=== PATIENT | male | born 1990 | race Caucasian/White ===

== ENCOUNTER 2017-10-24 08:45 | Emergency (ER) | payer OTHER ==
[~2017-10-24] VITALS: Ht 175.3 cm; Wt 63.5 kg
[~2017-10-24 08:45] MED LIST: HYDR-2758 PO
--- NOTE | 2017-10-24 09:22 | PHYS DOC ---
Past History Past Medical History: No Pertinent History Past Surgical History: No Surgical History Alcohol Use: None Drug Use: None Adult General Chief Complaint Chief Complaint: LOWEREXTREMITY INJURY HPI HPI 27-year-old male presenting to the emergency department today after being kicked in the right knee on the medial aspect by horse. He has pain in his knee that is sharp moderate worse with walking and without alleviating factors. He was able to ambulate after the event and denies any "buckling of the knee". He has mild left hip pain but denies any injury to the left hip. On exam of left hip has no pain with passive range of motion of the hip. He is able to ambulate and put full weight on the left hip. I do not believe an x-ray of left hip is medically warranted at this time. He denies any other injuries. He denies head injury or loss of consciousness. Review of systems is negative for chest pain shortness of breath abdominal pain or any other injuries. He denies pain in his upper extremities. All other review of systems is negative. ED course: 27-year-old male presenting to the emergency department today after being injured in the right knee by being kicked by a horse. On examination the patient has normal range of motion of left hip without any pain. On examination the patient's right knee he has an effusion with a mild abrasion. Tetanus is up- to-date. Stable knee joint on exam. Normal anterior and posterior drawer test. Patient does not tolerate medial or lateral valgus or varus stress testing due to pain. Palpable pulse distally. 2 second cap refill. Normal neurovascular status of the foot distally. X-ray obtained and unremarkable for acute fracture or dislocation. We will place the patient in an Kiran bandage, I recommend rest and bearing weight as tolerated along with elevation of the extremity and icing the extremity regularly. We will have him follow up with his doctor in 2-3 days for a repeat knee examination. If his pain continues he may warrant an MRI for further investigation tenderness primary care physician. The patient has been examined and was not found to have an emergency medical condition. The patient was then discharged home in stable condition to follow up with their primary care physician over the next 2-3 days. They were to return if their symptoms worsened or if they were concerned for any reason. They were also instructed to return to the emergency department if they were unable to get the recommended and appropriate follow-up. [id number] discharge instructions and return precautions were given. Patient's questions were answered to their satisfaction. Patient is comfortable with plan. Allergies Allergies Allergies Coded Allergies Type Severity Reaction Last Updated Verified No Known Allergies Allergy Unknown 10/12/14 No Physical Exam Physical Exam Constitutional: Well developed, well nourished, no acute distress, non-toxic appearance. [] HENT: Normocephalic, atraumatic, bilateral external ears normal, oropharynx moist, no oral exudates, nose normal. [] Eyes: PERRLA, EOMI, conjunctiva normal, no discharge. [] Neck: Normal range of motion, no tenderness, supple, no stridor. [] Cardiovascular:Heart rate regular rhythm, no murmur [] Lungs & Thorax: Bilateral breath sounds clear to auscultation [] Abdomen: Bowel sounds normal, soft, no tenderness, no masses, no pulsatile masses. [] Skin: Warm, dry, no erythema, no rash. [] Back: No tenderness, no CVA tenderness. [] Extremities: See above. Otherwise normal examination. Nontender. Normal neurovascular status. Neurologic: Alert and oriented X 3, normal motor function, normal sensory function, no focal deficits noted. [] Psychologic: Affect normal, judgement normal, mood normal. [] Current Patient Data Vital Signs Vital Signs Date Time Temp Pulse Resp B/P (MAP) Pulse Ox O2 Delivery O2 Flow Rate FiO2 10/24/17 09:11 98.9 76 22 99 Room Air EKG EKG [] Radiology/Procedures Radiology/Procedures [] Course & Med Decision Making Course & Med Decision Making Pertinent Labs and Imaging studies reviewed. (See chart for details) [] Dragon Disclaimer Dragon Disclaimer This electronic medical record was generated, in whole or in part, using a voice recognition dictation system. Departure Departure: Impression: Primary Impression: Right knee pain Additional Impression: Right knee injury Disposition: 01 HOME, SELF-CARE Condition: STABLE Referrals: LAKSHMI RICKETTS (PCP) Patient Instructions: Knee Pain Additional Instructions: Thank you for allowing us to participate in your care today. Return to the emergency department you have any new or worsening symptoms, or if you are concerned for any reason. Return to emergency department if you have any new or concerning symptoms including but not limited to fever, chills, nausea, vomiting, intractable pain, any new rashes, chest pain, shortness of air , uncontrolled bleeding, difficulty breathing, and/or vision loss. Follow up with your primary care physician within 3 days. Call your Primary Doctor tomorrow and inform them of your visit today. If you do not have a primary care provider we are happy to provide you with a list of our primary care providers contact information. This condition should be evaluated by your primary care physician and any recommended consulting services for continued management within 2-3 days after discharge. If at any time, you are having difficulty getting into your primary care doctor or a specialist, return to the emergency department. You may have been prescribed medication or given medication in the emergency department that can change in your level of thinking and ability to operate machinery. Many prescribed medications can cause this. Some commonly prescribed medications include hydrocodone, ativan, and benadryl. Be sure to check with your pharmacist and ask if the medications you've prescribed can affect your level of consciousness. I recommend not operating heavy machinery or driving while on medication such as these. Scripts Hydrocodone Bit/Acetaminophen (HYDROCODONE-APAP 5-325 ) 1 Each Tablet 1 TAB PO PRN Q6HRS PRN for PAIN, #2 TAB 0 Refills Prov: VALARIE DICKINSON MD 10/24/17 Problem Qualifiers VALARIE DICKINSON MD Oct 24, 2017 09:22
[2017-10-24] MEDS ORDERED: IBUPROFEN 400 MG TABLET. PO ONE (09:30)
--- NOTE | 2017-10-24 09:49 | RAD ---
INDICATION: Right knee injury, pain. Unable to straighten leg. TECHNIQUE: 3 views of the right knee are submitted for review. No comparison is available. FINDINGS: There is no fracture or dislocation although there is soft tissue swelling medially and there is a large joint effusion. There is no joint space narrowing. IMPRESSION: Soft tissue swelling and joint effusion. There is no acute fracture or dislocation apparent. Electronically signed by: Fabricio Benites MD (10/24/2017 9:46 AM) [facility]
[2017-10-24] MEDS ORDERED: HYDR-2758 PO (10:04)
[2017-10-24 10:25] VITALS: BP 124/70
== END 2017-10-24 10:30 | disposition home or self-care (01) ==
LOC: ER 08:45
DX: S80.211A Abrasion, right knee, initial encounter (principal); M25.552 Pain in left hip; W55.12XA Struck by horse, initial encounter; Y93.89 Activity, other specified; Y99.8 Other external cause status; Y92.89 Other specified places as the place of occurrence of the external cause
CPT/HCPCS: 73562; 99284

== ENCOUNTER 2018-07-27 20:31 | Inpatient (IN) | payer OTHER ==
[~2018-07-27] VITALS: Ht 177.8 cm; Wt 67.6 kg
[~2018-07-27 20:31] MED LIST changes: +HYDR-2155 PO; -HYDR-2758 PO
[2018-07-27 21:01] LABS: BASO % 0 % (0-3); EOS # 0.2 x10^3/uL (0.0-0.7); EOS % 2 % (0-3); HEMATOCRIT 48.8 % (39.0-53.0); HEMOGLOBIN 16.8 g/dL (13.0-17.5); LYMPH # 3.1 x10^3/uL (1.0-4.8); LYMPH % 32 % (24-48); MEAN CORPUSCULAR HEMOGLOBIN 30 pg (25-35); MEAN CORPUSCULAR HGB CONC 34 g/dL (31-37); MEAN CORPUSCULAR VOLUME 86 fL (79-100); MONO # 0.8 x10^3/uL (0.0-1.1); MONO % 8 % (0-9); NEUT # 5.6 x10^3uL (1.8-7.7); NEUT % 59 % (31-73); PLATELET COUNT 345 x10^3/uL (140-400); RED BLOOD COUNT 5.65 x10^6/uL (4.30-5.70); RED CELL DISTRIBUTION WIDTH 13.2 % (11.5-14.5); WHITE BLOOD COUNT 9.6 x10^3/uL (4.0-11.0)
[2018-07-27 21:15] LABS: ALBUMIN 4.3 g/dL (3.4-5.0); ALBUMIN/GLOBULIN RATIO 1.1 (1.0-1.7); CALCIUM 9.1 mg/dL (8.5-10.1); CREATININE 1.1 mg/dL (0.7-1.3); GFR 80.9; MAGNESIUM 1.8 mg/dL (1.8-2.4); POTASSIUM 3.6 mmol/L (3.5-5.1); TOTAL BILIRUBIN 1.2 mg/dL (0.2-1.0); TOTAL PROTEIN 8.2 g/dL (6.4-8.2)
--- NOTE | 2018-07-27 21:57 | EKG ---
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 Electronically Signed On 07-29-2018 12:24:29 CDT by Young Steen MD
[2018-07-27] MEDS ORDERED: ASPIRIN 81 MG TAB.CHEW PO ONE (23:00)
--- NOTE | 2018-07-27 23:05 | PHYS DOC ---
Past History Past Medical History: Anxiety, Depression Past Surgical History: No Surgical History Alcohol Use: None Drug Use: None Adult General Chief Complaint Chief Complaint: CHEST PAIN HPI HPI Patient is a 28-year-old male who presents with complaint of left-sided chest discomfort that started nearly 2 hours prior to arrival. Patient describes pain as sharp in nature and states the pain is worsened with deep breathing and with exertion. He states that he has had no nausea, vomiting or diaphoresis. Patient denies any cardiac history but does indicate that he has a family history of heart disease. Patient currently rates pain at about a 3 out of 10. Review of Systems Review of Systems Constitutional: Denies fever or chills [] Respiratory: Denies cough or shortness of breath [] Cardiovascular: No additional information not addressed in HPI [] GI: Denies abdominal pain, nausea, vomiting, bloody stools or diarrhea [] Integument: Denies rash or skin lesions [] Neurologic: Denies headache, focal weakness or sensory changes [] All other systems were reviewed and found to be within normal limits, except as documented in this note. Allergies Allergies Allergies Coded Allergies Type Severity Reaction Last Updated Verified No Known Allergies Allergy Unknown 10/12/14 No Physical Exam Physical Exam Constitutional: Well developed, well nourished, no acute distress, non-toxic appearance. [] HENT: Normocephalic, atraumatic, bilateral external ears normal, oropharynx moist, no oral exudates, nose normal. [] Eyes: PERRLA, EOMI, conjunctiva normal, no discharge. [] Neck: Normal range of motion, no tenderness, supple, no stridor. [] Cardiovascular:Heart rate regular rhythm, no murmur [] Lungs & Thorax: Bilateral breath sounds clear to auscultation [] Abdomen: Bowel sounds normal, soft, no tenderness. [] Skin: Warm, dry, no erythema, no rash. [] Extremities: No tenderness, no cyanosis, no clubbing, ROM intact, no edema. [] Neurologic: Alert and oriented X 3, no focal deficits noted. [] Current Patient Data Vital Signs Vital Signs Date Time Temp Pulse Resp B/P (MAP) Pulse Ox O2 Delivery O2 Flow Rate FiO2 07/27/18 21:58 72 18 122/76 (91) 98 Room Air 07/27/18 20:31 98.6 Lab Results Laboratory Tests Test 07/27/18 20:45 07/27/18 22:25 White Blood Count 9.6 x10^3/uL (4.0-11.0) Red Blood Count 5.65 x10^6/uL (4.30-5.70) Hemoglobin 16.8 g/dL (13.0-17.5) Hematocrit 48.8 % (39.0-53.0) Mean Corpuscular Volume 86 fL (79-100) Mean Corpuscular Hemoglobin 30 pg (25-35) Mean Corpuscular Hemoglobin Concent 34 g/dL (31-37) Red Cell Distribution Width 13.2 % (11.5-14.5) Platelet Count 345 x10^3/uL (140-400) Neutrophils (%) (Auto) 59 % (31-73) Lymphocytes (%) (Auto) 32 % (24-48) Monocytes (%) (Auto) 8 % (0-9) Eosinophils (%) (Auto) 2 % (0-3) Basophils (%) (Auto) 0 % (0-3) Neutrophils # (Auto) 5.6 x10^3uL (1.8-7.7) Lymphocytes # (Auto) 3.1 x10^3/uL (1.0-4.8) Monocytes # (Auto) 0.8 x10^3/uL (0.0-1.1) Eosinophils # (Auto) 0.2 x10^3/uL (0.0-0.7) Basophils # (Auto) 0.0 x10^3/uL (0.0-0.2) D-Dimer (Nancie) 0.20 mg/L (0.00-0.50) Sodium Level 140 mmol/L (136-145) Potassium Level 3.6 mmol/L (3.5-5.1) Chloride Level 101 mmol/L (98-107) Carbon Dioxide Level 32 mmol/L (21-32) Anion Gap 7 (6-14) Blood Urea Nitrogen 12 mg/dL (8-26) Creatinine 1.1 mg/dL (0.7-1.3) Estimated GFR (Cockcroft-Gault) 80.9 BUN/Creatinine Ratio 11 (6-20) Glucose Level 87 mg/dL (70-99) Calcium Level 9.1 mg/dL (8.5-10.1) Magnesium Level 1.8 mg/dL (1.8-2.4) Total Bilirubin 1.2 mg/dL (0.2-1.0) H Aspartate Amino Transferase (AST) 20 U/L (15-37) Alanine Aminotransferase (ALT) 24 U/L (16-63) Alkaline Phosphatase 134 U/L (46-116) H Troponin I Quantitative 0.031 ng/mL (0-0.055) 0.039 ng/mL (0-0.055) Total Protein 8.2 g/dL (6.4-8.2) Albumin 4.3 g/dL (3.4-5.0) Albumin/Globulin Ratio 1.1 (1.0-1.7) Lipase 127 U/L (73-393) EKG EKG EKG demonstrates normal sinus rhythm with rate of 70.[] Radiology/Procedures Radiology/Procedures [] Impressions: Chest x-ray demonstrates no acute process. Course & Med Decision Making Course & Med Decision Making Pertinent Labs and Imaging studies reviewed. (See chart for details) [] Dragon Disclaimer Dragon Disclaimer This electronic medical record was generated, in whole or in part, using a voice recognition dictation system. Departure Departure: Impression: Primary Impression: Chest pain Disposition: ADMITTED INPATIENT Admitting Physician: Luke Schmidt Condition: IMPROVED Referrals: PCP,UNKNOWN (PCP) Problem Qualifiers Primary Impression: Chest pain Chest pain type: unspecified Qualified Codes: R07.9 - Chest pain, unspecified ERIN MULLER Jr. DO Jul 27, 2018 23:05
[2018-07-27] MEDS ORDERED: ONDANSETRON PF 4 MG/2 ML VIAL. IV PRN (23:15)
[2018-07-27] MEDS ORDERED: MORPHINE SULFATE 2 MG/ML DISP.SYRIN. IV PRN (23:15)
[2018-07-27] MEDS ORDERED: NITROGLYCERIN SUBLINGUAL 0.4 MG BOTTLE OF 25. SL PRN (23:15)
[2018-07-27 23:45] VITALS: BP 137/75
[2018-07-28] VITALS (7 sets, daily range): BP systolic 110–123; BP diastolic 57–70
[2018-07-28] MEDS ORDERED: TRAZ-120 PO (00:25)
[2018-07-28] MEDS ORDERED: GABA-586 PO (00:25)
[2018-07-28] MEDS ORDERED: GABA300C8 PO (00:25)
[2018-07-28] MEDS ORDERED: DULO30CA2 PO (00:25)
[2018-07-28] MEDS ORDERED: traZODone 50 MG TABLET. PO PRN (00:30)
[2018-07-28] MEDS: GABAPENTIN 300 MG CAPSULE. PO SCH ×3 (01:15→20:11)
--- NOTE | 2018-07-28 07:50 | RAD ---
Examination: PORTABLE CHEST 1V History: CHEST PAIN Comparison/Correlation: None Findings: Portable frontal view chest was obtained with the patient upright. Heart size and bony vasculature are normal. No definite infiltrate or pleural effusion. Bony structures are grossly unremarkable. No pneumothorax. Impression: No active disease. Electronically signed by: Yong Mensah MD (07/28/2018 7:47 AM) [facility]
[2018-07-28] MEDS: DULoxetine HCL 30 MG CAPSULE.DR PO SCH (08:20)
[2018-07-28 13:33] LABS: THYROID STIM HORMONE (TSH) 0.436 uIU/mL (0.358-3.740)
--- NOTE | 2018-07-28 17:28 | CARD ---
MR#: [id number] Date of Study: 07/28/2018 Ordering Physician: ENMANUEL ALDRICH, Referring Physician: ENMANUEL ALDRICH, Tech: Jessica Mckinley APPROVED REPORT EXAM: Two-dimensional and M-mode echocardiogram with Doppler and color Doppler. Other Information Quality : AverageHR: 65bpm INDICATION Chest Pain RISK FACTORS Smoking 2D DIMENSIONS RVDd2.0 (2.9-3.5cm)Left Atrium(2D)2.5 (1.6-4.0cm) IVSd0.7 (0.7-1.1cm)Aortic Root(2D)2.7 (2.0-3.7cm) LVDd4.2 (3.9-5.9cm)LVOT Diameter2.0 (1.8-2.4cm) PWd0.8 (0.7-1.1cm)LVDs2.6 (2.5-4.0cm) FS (%) 37.6 %SV52.7 ml Aortic Valve AoV Peak Jordan.99.1cm/sAoV VTI21.0cm AO Peak GR.3.9mmHgLVOT Peak Jordan.79.4cm/s LVOT VTI 17.70cmAO Mean GR.3mmHg MOO (VMAX)2.07ux1MEM (VTI)2.73cm2 Mitral Valve MV E Qgoaysgd04.1cm/sMV DECEL LVJD203uj MV A Omgpmoeb21.7cm/sE/A Ratio1.7 Pulmonary Valve PV Peak Cxtjckxp52.9cm/sPV Peak Grad.4mmHg Pulmonary Vein S1 Zbufzmia47.6cm/sD2 Ognoejnq12.6cm/s LEFT VENTRICLE The left ventricle is normal size. There is normal left ventricular wall thickness. The left ventricu lar systolic function is normal and the ejection fraction is within normal range. The Ejection Fracti on is 55-60%. There is normal LV segmental wall motion. The left ventricular diastolic function and f illing is normal for age. RIGHT VENTRICLE The right ventricle is normal size. There is normal right ventricular wall thickness. The right ventr icular systolic function is normal. ATRIA The left atrium size is normal. The right atrium size is normal. The interatrial septum is intact wit h no evidence for an atrial septal defect or patent foramen ovale as noted on 2-D or Doppler imaging. AORTIC VALVE The aortic valve is normal in structure and function. Doppler and Color Flow revealed no significant aortic regurgitation. There is no significant aortic valvular stenosis. MITRAL VALVE The mitral valve is normal in structure and function. There is no evidence of mitral valve prolapse. There is no mitral valve stenosis. Doppler and Color Flow revealed no mitral valve regurgitation note d. TRICUSPID VALVE The tricuspid valve is normal in structure and function. Doppler and Color Flow revealed trace tricus pid regurgitation. There is no tricuspid valve stenosis. PULMONIC VALVE The pulmonary valve is normal in structure and function. Doppler and Color Flow revealed trace to mil d pulmonic valvular regurgitation. GREAT VESSELS The aortic root is normal in size. The IVC is normal in size and collapses >50% with inspiration. PERICARDIAL EFFUSION There is no evidence of significant pericardial effusion. Critical Notification Critical Value: No <Conclusion> The left ventricle is normal size. The left ventricular systolic function is normal and the ejection fraction is within normal range. The Ejection Fraction is 55-60%. Doppler and Color Flow revealed no significant aortic regurgitation. There is no significant aortic valvular stenosis. Doppler and Color Flow revealed no mitral valve regurgitation noted. Doppler and Color Flow revealed trace tricuspid regurgitation. There is no evidence of significant pericardial effusion. Signed by : Patrick John MD Electronically Approved : 07/28/2018 17:27:44
--- NOTE | 2018-07-29 01:12 | HP ---
ADMIT DATE: 07/27/2018 HISTORY OF PRESENT ILLNESS: The patient is a 28-year-old male patient who came to the Emergency Room complaining of chest pain that he felt on the right side of his chest, sharp, rated about 6-7/10 in severity, it lasted about 1-1/2 minutes. He denied any shortness of breath. Denied any nausea, vomiting or diaphoresis. He has multiple episodes of this and because of the location of the chest pain on the right side, he came to the Emergency Room for further evaluation and treatment. PAST MEDICAL HISTORY: Significant for anxiety, depression, scoliosis, and left knee meniscal tear. PAST SURGICAL HISTORY: Significant for left shoulder surgery in 2013. ALLERGIES: He has no known drug allergies. MEDICATIONS: He is currently on following medications: He is on Cymbalta 90 mg daily, trazodone 50 mg at bedtime, gabapentin 600 mg at bedtime and 300 mg daily. FAMILY HISTORY: He has 1 full brother who is younger and healthy. His father is in his 40 and has hypertension. Mother is alive at the age of 45 and has breast and ovarian cancer. SOCIAL HISTORY: He is , has no children. He smokes 3 cigarettes a day, 1-2 beers a week. Does not use any drugs. 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 REVIEW OF SYSTEMS: As per history of present illness. PHYSICAL EXAMINATION GENERAL: On arrival to the Emergency Room, the patient looked well and was clearly in no apparent respiratory distress. No pallor, jaundice, cyanosis, or thyromegaly. No jugular venous distension. No lower limb edema. VITAL SIGNS: His heart rate was 77, blood pressure was 146/88, temperature was 98.6, respiratory rate was 18 and oxygen saturation was 97% on room air. HEAD, EYES, EARS, NOSE, AND THROAT: Showed normocephalic, atraumatic. NECK: Supple. HEART: Showed normal first and second heart sounds with no gallop or murmur. CHEST: Clear to auscultation. No crepitation or rhonchi. ABDOMEN: Distended, soft, nontender. NEUROLOGIC: He was awake, alert, responding appropriately. All cranial nerves are intact. EXTREMITIES: He moves extremities without difficulty. He ambulates without assistance or assistive devices. LABORATORY DATA: On arrival to the Emergency Room showed his white cell count to be 9600, hemoglobin 17, hematocrit 49, MCV 86 and platelet count 345,000 with normal manual differential. His chemistry showed a serum sodium 140, potassium 3.6, chloride 101, bicarbonate 32, anion gap of 7, BUN 12, creatinine 1.1, estimated GFR was 81 mL per minute, glucose 87, calcium was 9.1, magnesium was 1.8. Total bilirubin and alkaline phosphatase were slightly elevated; however, AST, ALT were normal. His first set of cardiac enzymes showed troponin to be less than 0.031. His total protein was 8.2, albumin was 4.3. Serum lipase was 127. His D-dimer was 0.20 mg/dL. IMAGING: A chest x-ray showed that his heart size and lung vasculature are normal. No definite infiltrate or pleural effusion. Bony structures are grossly unremarkable. No pneumothorax. His EKG showed that he was in sinus rhythm, what seems to be right axis deviation and probably right bundle branch block versus right ventricular hypertrophy. PLAN: The patient will be admitted, we will to do 2 more sets of cardiac enzyme, fasting lipid profile. We will consult the payloader operator and decide on further management accordingly. ENMANUEL ALDRICH MD DR: DOMINIC/liz JOB#: [id number] / [id number]
[2018-07-29 05:15] VITALS: BP 105/58
[2018-07-29] MEDS: DULoxetine HCL 30 MG CAPSULE.DR PO SCH (07:57)
[2018-07-29] MEDS: GABAPENTIN 300 MG CAPSULE. PO SCH (07:57)
[2018-07-29 08:00] LABS: BASO # 0.1 x10^3/uL (0.0-0.2); BASO % 1 % (0-3); EOS # 0.2 x10^3/uL (0.0-0.7); EOS % 3 % (0-3); HEMATOCRIT 49.2 % (39.0-53.0); HEMOGLOBIN 16.7 g/dL (13.0-17.5); LYMPH # 2.8 x10^3/uL (1.0-4.8); LYMPH % 35 % (24-48); MEAN CORPUSCULAR HEMOGLOBIN 29 pg (25-35); MEAN CORPUSCULAR HGB CONC 34 g/dL (31-37); MEAN CORPUSCULAR VOLUME 86 fL (79-100); MONO # 0.7 x10^3/uL (0.0-1.1); MONO % 9 % (0-9); NEUT # 4.3 x10^3uL (1.8-7.7); NEUT % 54 % (31-73); PLATELET COUNT 281 x10^3/uL (140-400)
[2018-07-29 08:15] LABS: ALBUMIN 3.6 g/dL (3.4-5.0); GFR 90.3; POTASSIUM 3.9 mmol/L (3.5-5.1); TOTAL BILIRUBIN 1.2 mg/dL (0.2-1.0); TOTAL PROTEIN 7.3 g/dL (6.4-8.2)
[2018-07-29 11:08] VITALS: BP 98/49
--- NOTE | 2018-07-29 12:35 | PDOC ---
PROVIDER NOTE PROVIDER NOTE PROVIDER NOTE CARDIOLOGY CONSULT NOTE: CC: CHEST PAIN HPI: 28 y.o male with 1 hour of sharp pain prompted admission to hospital. He denies any associated dyspnea, orthopnea, pnd or LE edema. No syncope. Had some mild LH. He has scoliosis which has caused him back pain and chest pain for many years. No other issues. PMHX: 1. Tobacco use 2. 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 Famhx: No sudden cardiac ALL: NKDA CV meds: None ROS: Negative unless noted above in HPI. VSS Constitutional: Well developed, well nourished, no acute distress, non-toxic appearance. [] Neck: Normal range of motion, no tenderness, supple, no stridor. [] Cardiovascular:Heart rate regular rhythm, no murmur [] Lungs & Thorax: Bilateral breath sounds clear to auscultation [] Abdomen: Bowel sounds normal, soft, no tenderness, no masses, no pulsatile masses. [] Skin: Warm, dry, no erythema, no rash. [] Back: No tenderness, no CVA tenderness. [] Extremities: No tenderness, no cyanosis, no clubbing, ROM intact, no edema. [] Neurologic: Alert and oriented X 3, normal motor function, normal sensory function, no focal deficits noted. [] Psychologic: Affect normal, judgement normal, mood normal. [] Diagnostic studies: Trop, EKG, tele, echo and cxr within normal limits Impression: 1. Non-cardiac chest pain 2. Smoking Plan: 1. No further testing needed. No need for holter monitor, tele findings non- pathologic. 2. Patient is asymptomatic, if further symptoms, consider CT coronary angiography. Thanks. Pls call with questions. ELAYNE FRAGA MD Jul 29, 2018 12:34
--- NOTE | 2018-07-29 15:15 | DS ---
DATE OF DISCHARGE: 07/27/2018 HISTORY OF PRESENT ILLNESS: The patient is a 28-year-old male patient, who was admitted to the Emergency Room with right-sided chest pain that is fairly atypical. He has had 3 sets of cardiac enzymes that ruled out myocardial infarction. His lipid profile showed that serum triglycerides 98, total cholesterol 140, LDL was 93, VLDL was 19, HDL cholesterol was 28 and the ratio was 5. His D-dimer was 0.2 mg/dL. He has had an echocardiogram done, which showed that his left ventricle size is normal. Left ventricular systolic function is normal, ejection fraction is within normal range. Ejection fraction is 55-60%. There is no significant aortic regurgitation. No significant aortic valvular stenosis, no mitral regurgitation noted, no trace tricuspid regurgitation and no significant pericardial effusion. He was evaluated by the Cardiology team and they did not recommend any further ischemic workup and therefore, the patient was discharged home to continue on his home medications. PHYSICAL EXAMINATION: GENERAL: When I saw him this morning, he looked well and was clearly in no apparent respiratory distress. No pallor, jaundice, cyanosis, or thyromegaly. No jugular venous distension. No lower limb edema. VITAL SIGNS: His heart rate was 67, blood pressure was 98/49, temperature was 97.5, respiratory rate 20, and oxygen saturation was 99%. HEAD, EYES, EAR, NOSE AND THROAT: Showed normocephalic, atraumatic. NECK: Supple. HEART: Showed normal first and second heart sounds. No gallop, rub or murmur. CHEST: Clear to auscultation. No crepitation or rhonchi. ABDOMEN: Distended, soft, nontender. NEUROLOGIC: He is awake, alert, responding appropriately. All cranial nerves intact. He moves extremities without difficulty. LABORATORY DATA: Showed a white cell count of 8000, hemoglobin 16, hematocrit 49, MCV 86 and platelet count 281,000. His chemistry showed a serum sodium 139, potassium 3.9, chloride 103, bicarbonate 30, anion gap of 6, BUN 12, creatinine 1, estimated GFR was 90 mL per minute. As I stated, he has 3 sets of cardiac enzymes that ruled out myocardial infarction. MEDICATIONS: He was discharged home to continue on duloxetine for Cymbalta 90 mg p.o. daily, gabapentin 300 mg daily, gabapentin 600 mg at bedtime and trazodone 50 mg at bedtime for insomnia as needed. FINAL DISCHARGE DIAGNOSES: 1. Chest pain, myocardial infarction ruled out. 2. Right bundle branch block and right axis deviation. 3. Depression. 4. Chronic pain syndrome. 5. Insomnia. ENMANUEL ALDRICH MD DR: DOMINIC/liz JOB#: [id number] / [id number]
== END 2018-07-29 15:05 | disposition home or self-care (01) | DRG 313 ==
LOC: ER 20:31 → ICU 23:00 → ER 23:33 → UNDOADMIN 07-28 00:10 → ICU 07-28 00:10 → 1 SOUTH 07-28 00:10 → ICU 07-28 00:16 → 1 SOUTH 07-28 00:16
PROVIDERS: ADMIT Internal Medicine; ATTEND Internal Medicine
DX: R07.89 Other chest pain (principal); F17.210 Nicotine dependence, cigarettes, uncomplicated; F32.9 Major depressive disorder, single episode, unspecified; G47.00 Insomnia, unspecified; G89.4 Chronic pain syndrome; I45.10 Unspecified right bundle-branch block; M41.9 Scoliosis, unspecified; F41.9 Anxiety disorder, unspecified; E78.00 Pure hypercholesterolemia, unspecified; E78.5 Hyperlipidemia, unspecified; Z82.49 Family history of ischemic heart disease and other diseases of the circulatory system; Z80.3 Family history of malignant neoplasm of breast; Z80.41 Family history of malignant neoplasm of ovary
CPT/HCPCS: 36415; 71045; 80053; 80061; 83690; 83735; 84443; 84484; 85025; 85379; 87641; 93005; 93306; 99406; 99285-25

== ENCOUNTER → 2018-11-09 | Outpatient (CLI) | payer OTHER ==
[~2018-11-09] MED LIST changes: +DULO30CA2 PO; +GABA-586 PO; +GABA300C8 PO; +TRAZ-120 PO
--- NOTE | 2018-11-09 12:52 | RAD ---
EXAM: Chest CT without intravenous contrast. HISTORY: Chest pain. Cigarette smoking history. TECHNIQUE: Computed tomographic images of the chest were obtained without contrast. Multiplanar reformatting was performed. *One or more of the following individualized dose reduction techniques were utilized for this examination: 1. Automated exposure control. 2. Adjustment of the mA and/or kV according to patient size. 3. Use of iterative reconstruction technique. COMPARISON: Chest radiograph dated 07/27/2018. FINDINGS: There is no pneumothorax, infiltrate or pleural effusion. There is no suspicious pulmonary nodule. There is a 2 mm nodular opacity within the right minor fissure due to a fissural lymph node. The heart is normal in size. The aorta is normal in caliber. There is slight increased soft tissue density within the anterior mediastinum due to residual thymus, within appropriate limits for patient age. No pathologically enlarged lymph node is seen. There is bilateral gynecomastia. There is a tiny suspected cyst within the hepatic dome. There is a punctate stone within the upper pole of the left kidney. There is no suspicious osseous lesion. IMPRESSION: 1. No acute thoracic finding. 2. Bilateral gynecomastia. 3. Tiny suspected hepatic cyst and punctate left renal stone. Electronically signed by: Chanelle Hardy MD (11/09/2018 12:49 PM) [facility]
== END | disposition home or self-care (01) ==
LOC: CT 11:04
PROVIDERS: ATTEND Internal Medicine Cardiovascular Disease
DX: N62 Hypertrophy of breast (principal); K76.89 Other specified diseases of liver; N20.0 Calculus of kidney; Z87.891 Personal history of nicotine dependence
CPT/HCPCS: 71250

== ENCOUNTER 2019-01-11 18:01 | Emergency (ER) | payer OTHER ==
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
[2019-01-11] MEDS ORDERED: IV NORMAL SALINE 1,000ML 1,000 ML IV ONE (19:00)
[2019-01-11] MEDS ORDERED: METOCLOPRAMIDE HCL 10 MG/2 ML VIAL. IVP ONE (19:00)
[2019-01-11] MEDS ORDERED: KETOROLAC 30 MG/ML VIAL. IV ONE (19:00)
[2019-01-11] MEDS ORDERED: diphenhydrAMINE 50 MG/ML VIAL IVP ONE (19:00)
[2019-01-11 19:25] LABS: BASO % 0 % (0-3); EOS # 0.1 x10^3/uL (0.0-0.7); EOS % 1 % (0-3); HEMATOCRIT 46.2 % (39.0-53.0); HEMOGLOBIN 15.8 g/dL (13.0-17.5); LYMPH # 2.4 x10^3/uL (1.0-4.8); LYMPH % 23 % (24-48); MEAN CORPUSCULAR HEMOGLOBIN 30 pg (25-35); MEAN CORPUSCULAR HGB CONC 34 g/dL (31-37); MEAN CORPUSCULAR VOLUME 88 fL (79-100); MONO # 0.9 x10^3/uL (0.0-1.1); MONO % 9 % (0-9); NEUT # 6.8 x10^3uL (1.8-7.7); NEUT % 67 % (31-73); PLATELET COUNT 327 x10^3/uL (140-400); RED BLOOD COUNT 5.25 x10^6/uL (4.30-5.70); RED CELL DISTRIBUTION WIDTH 13.7 % (11.5-14.5); WHITE BLOOD COUNT 10.2 x10^3/uL (4.0-11.0)
[2019-01-11 19:32] LABS: ALBUMIN 3.7 g/dL (3.4-5.0); CALCIUM 8.9 mg/dL (8.5-10.1); GFR 90.3; POTASSIUM 4.6 mmol/L (3.5-5.1); TOTAL BILIRUBIN 0.4 mg/dL (0.2-1.0); TOTAL PROTEIN 7.3 g/dL (6.4-8.2)
[2019-01-11 20:50] LABS: BACTERIA,URINE FEW /HPF (0-FEW); BILIRUBIN,URINE NEG (NEG); CLARITY,URINE CLEAR; COLOR,URINE YELLOW; GLUCOSE,URINE NEG (NEG); NITRITE,URINE NEG (NEG); RBC,URINE 0 /HPF (0-2); SQUAMOUS EPITHELIAL CELL,UR OCC /LPF; UROBILINOGEN,URINE 1 mg/dL (0.2 mg/dL); WBC,URINE 0 /HPF (0-4)
[2019-01-11 20:55] VITALS: BP 122/68
== END 2019-01-11 21:18 | disposition home or self-care (01) ==
LOC: ER 18:01
DX: M54.2 Cervicalgia (principal); M54.6 Pain in thoracic spine; G89.29 Other chronic pain; M54.5 Low back pain; V49.49XA Driver injured in collision with other motor vehicles in traffic accident, initial encounter; Y93.I9 Activity, other involving external motion; Y92.488 Other paved roadways as the place of occurrence of the external cause; Y99.8 Other external cause status
CPT/HCPCS: 36415; 70450; 72125; 80053; 81001; 85025; 96374; 96375; 99285; J1200; J1885; J2765; J7030